=== PATIENT | male | born 1930 | race Caucasian/White ===

== ENCOUNTER 2016-11-30 15:21 | Emergency (ER) | payer MEDICARE, OTHER ==
[~2016-11-30] VITALS: Ht 170.2 cm; Wt 24.9 kg
[~2016-11-30 15:21] MED LIST: ASPI-605 PO; BENA20TA2 PO; BRIM5DRO2 OP; CELE-85 PO; CICL15CR12 TP; DIPH50TA15 PO; DOXY100C2 PO; FLUT1DIS28 IH; FURO-151 PO; GLIM1TAB3 PO; IPRA4AER IH; LEVO500T2 PO; METO-302 PO; MONT10TA22 PO; NORT50CA PO; POTA8TAB3 PO; ROSU10TA PO; SITA100T PO; TAMS0.4C34 PO; TRIA10PO3 MC
[2016-11-30 16:09] LABS: BASOPHILS # (AUTO) 0.1 K/uL (0.0-8.0); BASOPHILS % (AUTO) 0.9 % (0.0-2.0); EOSINOPHILS % (AUTO) 0.4 % (0.0-7.0); HEMATOCRIT 45.4 % (40-50); HEMOGLOBIN 15.2 G/DL (14.0-18.0); LYMPHOCYTES # (AUTO) 0.7 K/UL (0.8-4.8); LYMPHOCYTES % (AUTO) 8.5 % (20.5-51.5); MEAN CORPUSCULAR HEMOGLOBIN 31.5 UUG (27.0-31.0); MEAN CORPUSCULAR HGB CONC 33 g/dL (32.0-37.0); MEAN CORPUSCULAR VOLUME 94.3 FL (82.0-92.0); MONOCYTES # (AUTO) 0.3 K/UL (0.1-1.30); MONOCYTES % (AUTO) 2.9 % (0.0-11.0); NEUTROPHILS # (AUTO) 7.6 K/UL (1.8-8.9); NEUTROPHILS % (AUTO) 87.3 % (38.5-71.5); PLATELET COUNT (AUTO) 185 K/UL (150-450); RED BLOOD CELL COUNT(AUTO) 4.82 MIL/UL (4.7-6.1); WHITE BLOOD COUNT (AUTO) 8.7 K/UL (4.0-11.2)
[2016-11-30 16:20] LABS: CARBON DIOXIDE 27 mmol/L (21-32); CHLORIDE 102 mmol/L (98-107); GLUCOSE 253 mg/dL (74-106); POTASSIUM 3.8 mmol/L (3.5-5.1); UREA NITROGEN, BLOOD 15 mg/dL (7-18)
[2016-11-30 16:25] LABS: *BILIRUBIN,URIN NEGATIVE (NEGATIVE); *BLOOD, URINE 3+ (NEGATIVE); *CLARITY,URINE SLIGHTLY CLOUDY (CLEAR); *COLOR,URINE YELLOW (YELLOW); *KETONES,URINE 2+ (NEGATIVE); *PROTEIN,URINE 1+ (NEGATIVE); LEUKOCYTE ESTERASE ,URINE 1+ (NEGATIVE); NITRITE, URINE POSITIVE (NEGATIVE)
[2016-11-30 16:26] LABS: UGLUCOSE 2+ (NEGATIVE)
[2016-11-30 16:35] LABS: ALANINE AMINOTRANSFERASE 20 U/L (16-63); ALKALINE PHOSPHATASE 80 U/L (50-136); ASPARTATE AMINOTRANSFERASE 17 U/L (15-37); BILIRUBIN,DIRECT 0.2 mg/dL (0.0-0.2); BILIRUBIN,TOTAL 0.9 mg/dL (0.2-1.0); TOTAL PROTEIN, SERUM 6.8 g/dL (6.4-8.2)
[2016-11-30 16:35] LABS: BACTERIA,URINE MODERATE /HPF (NONE SEEN); RBC,URINE 50-80 /HPF (0-3); SQUAMOUS EPITHELIAL CELL,UR FEW /HPF (NONE SEEN)
[2016-11-30 16:38] LABS: ACETAMINOPHEN < 2.0 ug/mL (10-30)
[2016-11-30 17:09] LABS: THYROID STIMULATING HORMONE 1.307 mIU/mL (0.358-3.740)
[2016-11-30] MEDS ORDERED: HYDR-3026 PO (17:14)
[2016-11-30] MEDS ORDERED: POTASSIUM CITRATE PO (17:14)
[2016-11-30] MEDS ORDERED: BUSP10TA3 PO (17:14)
[2016-11-30] MEDS ORDERED: GUAI-671 PO (17:14)
[2016-11-30] MEDS ORDERED: BIMA2.5D5 OP (17:14)
[2016-11-30] MEDS ORDERED: RISP1TAB27 PO (17:14)
[2016-11-30] MEDS ORDERED: BRIM5DRO2 OP (17:14)
[2016-11-30] MEDS ORDERED: FESO8TAB PO (17:14)
[2016-11-30] MEDS ORDERED: CLOB15CR4 TP (17:14)
[2016-11-30] MEDS ORDERED: HYDR-3028 PO (17:14)
[2016-11-30] MEDS ORDERED: LORA-588 PO (17:14)
[2016-11-30] MEDS ORDERED: NYST15CR TP (17:14)
[2016-11-30] MEDS ORDERED: DEXL60CA3 PO (17:14)
[2016-11-30] MEDS ORDERED: FLUT1DIS28 IH (17:14)
[2016-11-30] MEDS ORDERED: ALBU8.5H8 IH (17:14)
[2016-11-30] MEDS ORDERED: ALPR0.5T8 PO (17:14)
--- NOTE | 2016-11-30 18:30 | NUR ---
PT DAUGHTER REQUESTING THE PT TO BE D/SD HOME. WILL FOLLOW UP WITH THEIR OWN PMD.Patient discharged to home in stable conditon. Written and verbal after care instructions given. Patient DAUGHTER verbalizes understanding of instructions.PT WITH OUT ANY SIGN OF DISTRESS.
[2016-11-30 18:46] VITALS: BP 129/61
== END 2016-11-30 18:30 | disposition home or self-care (01) ==
LOC: ER 15:24
DX: R41.82 Altered mental status, unspecified (principal); R19.03 Right lower quadrant abdominal swelling, mass and lump; F03.90 Unspecified dementia, unspecified severity, without behavioral disturbance, psychotic disturbance, mood disturbance, and anxiety; I25.2 Old myocardial infarction; I10 Essential (primary) hypertension; M17.0 Bilateral primary osteoarthritis of knee; Z88.8 Allergy status to other drugs, medicaments and biological substances; Z79.82 Long term (current) use of aspirin
CPT/HCPCS: 36415; 51702; 70030-TC; 70450; 71010; 83605; 84443; 85025; 85730; 87040; 87077; 87086; 93005; A4663; C1758; G0480-TC